=== PATIENT | female | born 1990 | race Hispanic/Latino ===

== ENCOUNTER 2023-11-28 21:36 | Emergency (ER) | payer OTHER ==
[~2023-11-28] VITALS: Ht 167.6 cm; Wt 76.2 kg
[~2023-11-28 21:36] MED LIST: CETI-89 PO; FOLI0.4T6 PO; LEVO150C4 PO; MONT-46 PO; PNV1TABL PO
[2023-11-28 22:57] LABS: RAPID GROUP A STREP negative (NEGATIVE)
[2023-11-28 23:01] LABS: SARS-CoV-2, RNA, NAAT NEGATIVE SARS CoV-2 (NEGATIVE)
[2023-11-28 23:04] LABS: INFLUENZA TYPE A Negative For Type A (NEGATIVE); INFLUENZA TYPE B Negative For Type B (NEGATIVE)
[2023-11-28] MEDS: ACETAMINOPHEN 500 MG TABLET PO ONE (23:30)
[2023-11-28 23:55] LABS: APPEARANCE,URINE CLEAR (CLEAR); BILIRUBIN,URINE NEGATIVE (NEGATIVE); COLOR,URINE YELLOW (YELLOW); GLUCOSE, URINE (UA) NEGATIVE (NEGATIVE); KETONES,URINE 20 mg/dL (NEGATIVE); LEUKOCYTE ESTERASE ,URINE 25 Leu/uL (NEGATIVE); NITRATE,URINE NEGATIVE (NEGATIVE); OCCULT BLOOD,URINE NEGATIVE (NEGATIVE); PH,URINE 5.5 (5.0-8.0); PROTEIN,URINE 20 mg/dL (NEGATIVE); UROBILINOGEN,URINE 0.2 mg/dL (0.2-1.0)
[2023-11-28 23:56] LABS: ADD UA MICROSCOPIC YES
[2023-11-28 23:57] LABS: HCG,QUALITATIVE URINE NEGATIVE (NEGATIVE)
[2023-11-28] MEDS: DEXAMETHASONE SOD PHOSPHATE 4 MG/ML 1ML VIAL IM ONE (23:58)
[2023-11-28 23:59] LABS: BACTERIA,URINE FEW /HPF (None Seen); MUCUS,URINE RARE LPF (None Seen); SQUAMOUS EPITHELIAL CELL,UR RARE /HPF (0-2)
[2023-11-29] MEDS ORDERED: MAGNESIUM 2GM PREMIX 50ML 50 ML IV SCH
[2023-11-29 00:31] VITALS: PULSE 90; RESP 19
[2023-11-29] MEDS: IPRATROPIUM/ALBUTEROL SULFATE 3 ML SOLUTION IH ONE (00:31)
[2023-11-29 00:48] VITALS: TEMP 99.6
[2023-11-29] MEDS: ALBUTEROL 0.083% 2.5 MG/3 ML INH IH ONE (00:57)
[2023-11-29 01:04] VITALS: BP 115/61; PULSE 110; RESP 18; O2SAT 98
[2023-11-29] MEDS ORDERED: BUDE10.22 PO (01:09)
[2023-11-29] MEDS ORDERED: BUDE10.26 PO (01:09)
[2023-11-29] MEDS ORDERED: LEVO150T11 PO (01:09)
[2023-11-29] MEDS ORDERED: LEVO125T11 PO (01:09)
[2023-11-29] MEDS ORDERED: MONT-39 PO (01:09)
[2023-11-29] MEDS ORDERED: ALBU2.5V2 IH (01:11)
[2023-11-29] MEDS ORDERED: NEBU-307 MC (01:11)
[2023-11-29] MEDS ORDERED: PRED20TA3 PO (01:11)
[2023-11-29] MEDS ORDERED: AZIT500T2 PO (01:11)
[2023-11-29] MEDS ORDERED: BUDESONIDE 0.5 MG/2 ML INH IH SCH (06:00)
== END 2023-11-29 01:57 | disposition home or self-care (01) ==
LOC: EDH 21:36
DX: J45.909 Unspecified asthma, uncomplicated (principal); E03.9 Hypothyroidism, unspecified; Z79.51 Long term (current) use of inhaled steroids; Z79.890 Hormone replacement therapy; Z20.822 Contact with and (suspected) exposure to COVID-19
CPT/HCPCS: 99284; 87635; 87880; 87804 ×2; 81001; 81025; 96372; 71045; 94640; J1100